=== PATIENT | female | born 1965 | race Caucasian/White ===

== ENCOUNTER 2018-08-07 10:08 | Emergency (ER) | END 2018-08-07 14:25 | disposition home or self-care (01) ==

== ENCOUNTER 2018-08-10 10:04 | Emergency (ER) | END 2018-08-10 11:56 | disposition home or self-care (01) ==

== ENCOUNTER 2019-02-11 11:27 | Emergency (ER) | payer OTHER ==
[~2019-02-11] VITALS: Ht 157.5 cm; Wt 88.0 kg
[~2019-02-11 11:27] MED LIST: CEPH-443 PO; HYDR-4011 PO; IBUP-1542 PO; SULF1TAB31 PO
[2019-02-11 12:28] VITALS: BP 130/76; PULSE 83; RESP 17; Ht 157.5 cm; Wt 88.0 kg
--- NOTE | 2019-02-11 12:43 | ERD ---
ER Documentation Chief Complaint Chief Complaint LOWER ABD/PELVIC PAIN RADIATING TO FLANKS AND BACK, PAINFUL URINATION HPI 53-year-old female, with a history of hypertension, presents to the emergency department, complaining of pelvic pain, associated with dysuria pain for 3 days. The patient denies fevers, no chills, no nausea or vomiting. ROS All systems reviewed and are negative except as per history of present illness. Medications Home Meds Active Scripts Ibuprofen* (Motrin*) 400 Mg Tab, 400 MG PO Q6H PRN for PAIN AND OR ELEVATED TEMP, #30 TAB Prov:CORINE GRIFFIN MD 02/11/19 Ciprofloxacin Hcl* (Ciprofloxacin Hcl*) 250 Mg Tablet, 250 MG PO BID, #14 TAB Prov:CORINE GRIFFIN MD 02/11/19 Cephalexin* (Keflex*) 500 Mg Capsule, 500 MG PO QID for 7 Days, CAP Prov:MIRA LESLIEC 08/07/18 Sulfamethoxazole/Trimethoprim* (Bactrim Ds* Tablet) 1 Each Tablet, 1 TAB PO BID for 7 Days, #14 TAB Prov:MIRA LESLIEC 08/07/18 Ibuprofen* (Motrin*) 600 Mg Tab, 600 MG PO Q6, #30 TAB Prov:MIRA LESLIE PA-C 08/07/18 Hydrocodone/Acetaminophen (Buford 5-325 Tablet) 1 Each Tablet, 1 TAB PO Q6H PRN for PAIN, #7 TAB Prov:MIRA LESLIEC 08/07/18 Allergies Allergies: Coded Allergies: No Known Allergy (Unverified , 08/07/18) PMhx/Soc History of Surgery: Yes ( x2) Anesthesia Reaction: No Hx Neurological Disorder: No Hx Respiratory Disorders: No Hx Cardiac Disorders: Yes (HTN, HYPERLIPIDEMIA) Hx Psychiatric Problems: No Hx Miscellaneous Medical Probl: No Hx Alcohol Use: No Hx Substance Use: No Hx Tobacco Use: No FmHx Family History: diabetes; No coronary disease Physical Exam Vitals Vital Signs Date Temp Pulse Resp B/P (MAP) Pulse Ox O2 O2 Flow FiO2 Time Delivery Rate 02/11/19 99.3 83 17 130/76 96 12:28 (94) Physical Exam Const: No acute distress Head: Atraumatic Eyes: Normal Conjunctiva ENT: Normal External Ears, Nose and Mouth. Neck: Full range of motion. No meningismus. Resp: Clear to auscultation bilaterally Cardio: Regular rate and rhythm, no murmurs Abd: Soft, non tender, non distended. Normal bowel sounds Skin: No petechiae or rashes Back: No midline or flank tenderness Ext: No cyanosis, or edema Neur: Awake and alert Psych: Normal Mood and Affect Results 24 hrs Laboratory Tests Test 02/11/19 13:10 Urine Color YELLOW Urine Clarity SLIGHTLY CLOUDY Urine pH 7.0 Urine Specific [place] 1.008 Urine Ketones NEGATIVE mg/dL Urine Nitrite NEGATIVE mg/dL Urine Bilirubin NEGATIVE mg/dL Urine Urobilinogen NEGATIVE mg/dL Urine Leukocyte Esterase 3+ Kiah/ul Urine Microscopic RBC 9 /HPF Urine Microscopic WBC > 182 /HPF Urine Squamous Epithelial Cells FEW /HPF Urine Bacteria FEW /HPF Urine Hemoglobin 2+ mg/dL Urine Glucose NEGATIVE mg/dL Urine Total Protein 2+ mg/dl Current Medications Medications Dose Sig/Jama Start Time Status Last (Trade) Ordered Route PRN Stop Time Admin Dose Reason Admin Ceftriaxone 1 gm ONCE ONCE 02/11/19 DC 02/11/19 Sodium IM 14:30 14:40 (Rocephin) 02/11/19 14:31 Lidocaine 5 ml ONCE ONCE 02/11/19 DC 02/11/19 (Xylocaine INFIL 14:30 14:41 1% (Mpf)) 02/11/19 14:31 Procedures/MDM Differential diagnosis include but not limited to: UTI, colitis, gastroenteritis, kidney stones, irritable bowel syndrome, inflammatory bowel syndrome, malabsorption syndrome, cholelithiasis, food intolerance, medication side effect, pancreatitis, diverticulitis, bowel obstruction. Low suspicion for acute abdomen Physical examination and clinical presentation consistent most likely with urinary tract infection. During the ED course the patient remained stable, no new complaints. Results and clinical impression discussed with patient who agrees with management. The patient is stable to be treated outpatient and will be discharged home, some side effects of prescribed medications (headache, rash, nausea, vomiting, diarrhea, drowsiness, habituation, bleeding, hypertension, interactions with other medications) were reviewed. The patient was instructed to follow up with the primary care provider in the next 48h. If symptoms persist, worsen or new symptoms develop, then patient should return to the ED immediately. Instructions explained and given directly by me to the patient with acknowledgment and demonstrated understanding. Disclaimer: Inadvertent spelling and grammatical errors are likely due to EHR/dictation software use and do not reflect on the overall quality of patient care. Also, please note that the electronic time recorded on this note does not necessarily reflect the actual time of the patient encounter. Departure Diagnosis: Primary Impression: UTI (urinary tract infection) Condition: Stable Patient Instructions: Understanding Urinary Tract Infections (UTIs) Additional Instructions: Muchas maureen por [facility] para tanner servicio. Esperamos que en tanner visita a la riley de emergencia tanner problema medico haya sido solucionado y que se sienta mucho mejor. Para estar seguros que tanner mejoria sigue en proceso, le pedimos el favor de hacer garcía clyde de seguimiento medico con tanner doctor primario en los proximos 2-4 haas. Lleve con usted estos documentos y las medicinas recetadas. Si tera sintomas empeoran, NO SE ESPERE, por favor regrese a riley de emergencia INMEDIATAMENTE. En vaishali que usted no tenga un mdico de atencin primaria: Llame al mdico o clnica comunitaria de referencia que aparece abajo marcella las horas de consultorio para hacer garcía clyde para que le vean. CLINICAS: [facility] [id number] [facility] [id number] [facility] [id number] [facility] [phone] [id number] [facility] [phone] [id number] [facility] [phone] [place] Feb 11, 2019 12:43
[2019-02-11] MEDS ORDERED: IBUP-1561 PO (14:05)
[2019-02-11] MEDS ORDERED: CIPR-193 PO (14:05)
[2019-02-11] MEDS ORDERED: CEFTRIAXONE 1 GM INJ IM ONE (14:30)
[2019-02-11] MEDS ORDERED: LIDOCAINE 1% (MPF) 5 ML VIAL INFIL ONE (14:30)
== END 2019-02-11 15:15 | disposition home or self-care (01) ==
LOC: FTE 11:27
DX: N39.0 Urinary tract infection, site not specified (principal); I10 Essential (primary) hypertension
CPT/HCPCS: 81001; 96372; J0696; Z7502; Z7610